=== PATIENT | female | born 1980 | race Caucasian/White ===

== ENCOUNTER 2020-06-09 16:56 | Emergency (ER) | payer SELFPAY ==
[~2020-06-09] VITALS: Ht 170.2 cm; Wt 79.5 kg
[2020-06-09 20:10] LABS: APPEARANCE,URINE CLOUDY (CLEAR); BILIRUBIN,URINE NEGATIVE (NEGATIVE); GLUCOSE, URINE (UA) NEGATIVE (NEGATIVE); KETONES,URINE NEGATIVE (NEGATIVE); LEUKOCYTE ESTERASE ,URINE MODERATE (NEGATIVE); NITRATE,URINE POSITIVE (NEGATIVE); OCCULT BLOOD,URINE LARGE (NEGATIVE); PROTEIN,URINE SEE CONFIRM (NEGATIVE)
[2020-06-09 20:21] LABS: SULFOSALICYLIC ACID,URINE 2+ (Negative)
[2020-06-09 20:22] LABS: BACTERIA,URINE Many /HPF (None Seen)
[2020-06-09 20:23] LABS: SQUAMOUS EPITHELIAL CELL,UR Few /LPF (None Seen)
[2020-06-09] MEDS ORDERED: CEPHALEXIN MONOHYDRATE 500 MG CAPSULE PO ONE (20:30)
[2020-06-09 20:43] VITALS: BP 149/90
== END 2020-06-09 20:51 | disposition home or self-care (01) ==
LOC: EMS 16:56
DX: N39.0 Urinary tract infection, site not specified (principal); F17.210 Nicotine dependence, cigarettes, uncomplicated
CPT/HCPCS: 81001; 81002; 82962; 84703; 87077; 87086; 87186; 87491; 87591; 99283

== ENCOUNTER 2022-08-14 07:30 | Emergency (ER) | payer OTHER ==
[~2022-08-14] VITALS: Ht 162.6 cm; Wt 72.7 kg
[2022-08-14 07:46] VITALS: TEMP 98.7
[2022-08-14] MEDS ORDERED: IPRATROPIUM BROMIDE 0.5 MG/2.5 ML NEB SOLUTION NEB ONE (09:15)
[2022-08-14] MEDS ORDERED: ALBUTEROL SULFATE 2.5 MG/0.5 ML NEB SOLUTION NEB ONE (09:15)
[2022-08-14] MEDS ORDERED: KETOROLAC TROMETHAMINE 30 MG/ML VIAL IM ONE (09:15)
[2022-08-14 09:28] LABS: BASOPHILS % (AUTO) 0.8 % (0.0-2.0); EOSINOPHILS % (AUTO) 4.8 % (1.0-6.0); HEMATOCRIT 33.6 % (36-46); HEMOGLOBIN 10.6 g/dL (12.0-16.0); LYMPHOCYTES # (AUTO) 3.2 K/uL (1.0-4.8); LYMPHOCYTES % (AUTO) 34.8 % (22.0-44.0); MEAN CORPUSCULAR HEMOGLOBIN 24.2 pg (26.0-34.0); MEAN CORPUSCULAR HGB CONC 31.4 G/dL (31.0-37.0); MEAN CORPUSCULAR VOLUME 77 fL (80-100); MONOCYTES # (AUTO) 0.4 K/uL (0.1-1.0); MONOCYTES % (AUTO) 4.2 % (2.0-9.0); NEUTROPHILS # (AUTO) 5.1 K/uL (1.8-7.7); NEUTROPHILS % (AUTO) 55.4 % (40.0-70.0); PLATELET COUNT (AUTO) 429 K/uL (150-450); RED BLOOD CELL COUNT(AUTO) 4.37 MIL/uL (4.00-5.20); RED CELL DISTRIBUTION WIDTH 18.5 % (11.5-14.5)
[2022-08-14 09:39] LABS: ANION GAP 7 mmol/L (8-16); CALCIUM, TOTAL 9.2 mg/dL (8.8-10.5); CARBON DIOXIDE 28 mmol/L (22-29); CHLORIDE 100 mmol/L (98-107); CREATININE 0.85 mg/dL (0.60-1.30); GLOMERULAR FILTR. RATE CALC > 60 mL/min (>60); GLUCOSE,RANDOM 148 mg/dL (70-110); POTASSIUM 3.9 mmol/L (3.5-5.1); SODIUM SERUM 135 mmol/L (136-145)
[2022-08-14 09:44] LABS: ALANINE AMINOTRANSFERASE 18 U/L (12-78); ALBUMIN 3.1 g/dL (3.4-5.0); ALKALINE PHOSPHATASE 86 U/L (46-116); ASPARTATE AMINOTRANSFERASE 16 U/L (15-37); BILIRUBIN,TOTAL 0.3 mg/dL (0.1-1.0)
[2022-08-14 09:50] VITALS: PULSE 80; RESP 16; O2SAT 95
[2022-08-14 10:00] VITALS: PULSE 82; RESP 18; O2SAT 98
[2022-08-14 10:02] VITALS: PULSE 82; RESP 16; O2SAT 98
[2022-08-14 11:30] VITALS: BP 145/94; PULSE 88; RESP 16
[2022-08-14] MEDS ORDERED: ALBU18HF12 IH (11:44)
[2022-08-14] MEDS ORDERED: IBUP-1492 PO (11:44)
== END 2022-08-14 11:56 | disposition home or self-care (01) ==
LOC: EMS 07:33
DX: M25.572 Pain in left ankle and joints of left foot (principal); J45.909 Unspecified asthma, uncomplicated; F17.210 Nicotine dependence, cigarettes, uncomplicated
CPT/HCPCS: 99285; 93971; 71045; 80053; 84703; 85025; 36415; 94640; 73610; 96372; J1885

== ENCOUNTER 2024-11-25 03:51 | Emergency (ER) | payer OTHER ==
[~2024-11-25] VITALS: Ht 162.6 cm; Wt 89.1 kg
[~2024-11-25 03:51] MED LIST: ALBU18HF12 IH; IBUP-1492 PO
[2024-11-25 03:56] VITALS: TEMP 98.1
[2024-11-25 04:23] LABS: PLATELET COUNT (AUTO) 546 K/uL (150-450); RED BLOOD CELL COUNT(AUTO) 4.65 MIL/uL (4.00-5.20); RED CELL DISTRIBUTION WIDTH 20.4 % (11.5-14.5); WHITE BLOOD COUNT (AUTO) 8.3 K/uL (4.5-11.0)
[2024-11-25 04:32] LABS: CALCIUM, TOTAL 8.4 mg/dL (8.8-10.5); CREATININE 0.63 mg/dL (0.60-1.30); GLOMERULAR FILTR. RATE CALC > 60 mL/min (>60); GLUCOSE,RANDOM 180 mg/dL (70-110); SODIUM SERUM 137 mmol/L (136-145); UREA NITROGEN, BLOOD 9 mg/dL (7-18)
[2024-11-25] MEDS: BENZONATATE 100 MG CAPSULE PO ONE (06:44)
[2024-11-25] MEDS: ACETAMINOPHEN 500 MG TABLET PO ONE (06:45)
[2024-11-25 06:50] LABS: COVID AG,FIA SOURCE NASAL SWAB
[2024-11-25 07:23] LABS: SARS-COV2 (COVID) ANTIGEN,FIA Negative (Negative)
[2024-11-25 07:38] LABS: INFLUENZA TYPE A NEGATIVE FOR TYPE A (NEGATIVE); INFLUENZA TYPE B NEGATIVE FOR TYPE B (NEGATIVE)
[2024-11-25] MEDS ORDERED: IBUP-1492 PO (07:57)
[2024-11-25] MEDS ORDERED: ACET-3385 PO (07:57)
[2024-11-25] MEDS ORDERED: LIDO-57 TP (07:57)
[2024-11-25] MEDS: ALBUTEROL SULFATE HFA 90 MCG/PUFF 8 GM INHALER IH ONE (08:23)
[2024-11-25 08:32] VITALS: BP 145/82; PULSE 82; RESP 16; O2SAT 97
== END 2024-11-25 08:33 | disposition home or self-care (01) ==
LOC: EMS 03:51
DX: B34.9 Viral infection, unspecified (principal); N93.8 Other specified abnormal uterine and vaginal bleeding; F17.210 Nicotine dependence, cigarettes, uncomplicated; Z20.822 Contact with and (suspected) exposure to COVID-19
CPT/HCPCS: 71045; 80048; 84703; 85025; 87804; 94640; 99284; 36415-L1; 36415-TC